=== PATIENT | male | born 1945 | race Caucasian/White ===

== ENCOUNTER 2017-12-17 11:01 | Emergency (ER) | payer MEDICARE ==
[2017-12-17 11:09] VITALS: RESP 20
[2017-12-17] MEDS ORDERED: Sodium Chloride 0.9% 1,000 ML IV ONE (11:33)
[2017-12-17 11:47] LABS: EOS % 0.2 % (0.0-4.0); HEMOGLOBIN 16.9 g/dL (12.0-18.0); MEAN CORPUSCULAR HEMOGLOBIN 32.5 pg (27.0-31.0); WHITE BLOOD COUNT 4.5 K/uL (4.8-10.8)
--- NOTE | 2017-12-17 11:54 | C.PDOC ---
History Of Present Illness Kd Johnson is a 72 year old male, with no significant past medical history , who presents to the emergency department complaining of abdominal pain associated with dribbling urine and headache onset since yesterday. Patient states he was seen in a hospital last week for the same symptoms, complaining of high blood pressure and abdominal pain. Patient reports multiple episodes of urine dribbling. He denies any fever, chills or other medical complaints. PMD: None provided. Time Seen by Provider: 12/17/17 11:22 Chief Complaint (Nursing): Abdominal Pain History Per: Patient History/Exam Limitations: no limitations Onset/Duration Of Symptoms: Days (x1) Current Symptoms Are (Timing): Still Present Radiation Of Pain To:: None Quality Of Discomfort: "Pain" Associated Symptoms: Urinary Symptoms (incontinence), Other (headache). denies : Fever, Chills Past Medical History Reviewed: Historical Data, Nursing Documentation, Vital Signs Vital Signs: Last Vital Signs Temp 97.5 F L 12/17/17 14:15 Pulse 74 12/17/17 14:15 Resp 20 12/17/17 14:15 BP 117/76 12/17/17 14:15 Pulse Ox 95 12/17/17 14:15 - Medical History PMH: No Chronic Diseases Surgical History: No Surg Hx Family History: States: Unknown Family Hx - Social History Hx Tobacco Use: No Hx Alcohol Use: No Hx Substance Use: No - Immunization History Hx Tetanus Toxoid Vaccination: No Hx Influenza Vaccination: No Hx Pneumococcal Vaccination: No Review Of Systems Constitutional: Negative for: Fever, Chills Cardiovascular: Negative for: Chest Pain Respiratory: Negative for: Cough Gastrointestinal: Positive for: Abdominal Pain Genitourinary: Positive for: Other (dribbling) Neurological: Positive for: Headache Physical Exam - Physical Exam Appears: Well, No Acute Distress Skin: Warm, Dry, No Rash Head: Atraumatic, Normacephalic Eye(s): bilateral: Normal Inspection, PERRL, EOMI Ear(s): Bilateral: Normal Nose: Normal Oral Mucosa: Moist Throat: Normal Neck: Normal ROM, Supple Cardiovascular: Rhythm Regular, No Murmur Respiratory: Normal Breath Sounds, No Wheezing Gastrointestinal/Abdominal: Tenderness (mild diffuse) Back: Normal Inspection, No CVA Tenderness, No Vertebral Tenderness Extremity: Normal ROM, No Pedal Edema, No Deformity, No Swelling Neurological/Psych: Oriented x3 (alert) ED Course And Treatment - Laboratory Results Result Diagrams: 12/17/17 11:41 12/17/17 11:41 Lab Interpretation: Normal ECG: Interpreted By Me ECG Rhythm: Sinus Rhythm ECG Interpretation: No Acute Changes Rate From EC O2 Sat by Pulse Oximetry: 96 (RA) Pulse Ox Interpretation: Normal - CT Scan/US No standard instances Other Rad Studies (CT/US): Read By Radiologist CT/US Interpretation: FINDINGS: LOWER THORAX: Bibasilar dependent atelectasis. Heart at the upper limits of normal in size. Coronary arterial and valvular calcifications. . LIVER: Unremarkable. No gross lesion or ductal dilatation. GALLBLADDER AND BILE DUCTS: Unremarkable. PANCREAS: Unremarkable. No gross lesion or ductal dilatation. SPLEEN: Unremarkable. ADRENALS: Unremarkable. No mass. KIDNEYS AND URETERS: Unremarkable. No hydronephrosis. No solid mass. VASCULATURE: Calcific atherosclerosis. No aortic aneurysm. BOWEL: Unremarkable. No obstruction. No gross mural thickening. APPENDIX: Unremarkable. Normal appendix. PERITONEUM: Small bilateral fat containing inguinal hernias. No free fluid. No free air. LYMPH NODES: Unremarkable. No enlarged lymph nodes. BLADDER: Unremarkable. REPRODUCTIVE: Unremarkable. BONES: Spinal degenerative changes. OTHER FINDINGS: None. IMPRESSION: Limited by motion artifact. No acute abdominal pelvic pathology. No urolithiasis or evidence of recently passed genitourinary calculus. FINDINGS: HEMORRHAGE: No intracranial hemorrhage. BRAIN: Diffuse atrophy with prominence of the ventricles and sulci noted. No mass effect or edema. Chronic appearing tiny left basal ganglia lacunar infarct. Please note that MRI with diffusion imaging is more sensitive in the detection of acute ischemic event. VENTRICLES: No hydrocephalus. CALVARIUM: Unremarkable. PARANASAL SINUSES: Unremarkable as visualized. No significant inflammatory changes. MASTOID AIR CELLS: Unremarkable as visualized. No inflammatory changes. OTHER FINDINGS: None. IMPRESSION: Nonspecific white matter changes. Tiny chronic appearing left basal ganglia lacunar infarct. Generalized atrophy. Progress Note: Patient seen for multiple complaints. Treated with IVF NSS and tylenol. On re-evaluation lungs clear in no distress Reassessment Condition: Improved Medical Decision Making Medical Decision Making: Initial Impression: Abdominal pain Initial Plan: --Abd & Pelvis w/o PO or IV contrast [CT] --Head w/o contrast [CT] --EKG --Comp Metabolic Panel --Lipase --CBC w/ differential --Sodium Chloride 1,000 ml IV 1,000 mls/hr --Urine culture --Urinalysis --reevaluation 12:[address] FINDINGS: HEMORRHAGE: No intracranial hemorrhage. BRAIN: Diffuse atrophy with prominence of the ventricles and sulci noted. No mass effect or edema. Chronic appearing tiny left basal ganglia lacunar infarct. Please note that MRI with diffusion imaging is more sensitive in the detection of acute ischemic event. VENTRICLES: No hydrocephalus. CALVARIUM: Unremarkable. PARANASAL SINUSES: Unremarkable as visualized. No significant inflammatory changes. MASTOID AIR CELLS: Unremarkable as visualized. No inflammatory changes. OTHER FINDINGS: None. IMPRESSION: Nonspecific white matter changes. Tiny chronic appearing left basal ganglia lacunar infarct. Generalized atrophy. 12:13 Abd/Pelvis CT FINDINGS: LOWER THORAX: Bibasilar dependent atelectasis. Heart at the upper limits of normal in size. Coronary arterial and valvular calcifications. . LIVER: Unremarkable. No gross lesion or ductal dilatation. GALLBLADDER AND BILE DUCTS: Unremarkable. PANCREAS: Unremarkable. No gross lesion or ductal dilatation. SPLEEN: Unremarkable. ADRENALS: Unremarkable. No mass. KIDNEYS AND URETERS: Unremarkable. No hydronephrosis. No solid mass. VASCULATURE: Calcific atherosclerosis. No aortic aneurysm. BOWEL: Unremarkable. No obstruction. No gross mural thickening. APPENDIX: Unremarkable. Normal appendix. PERITONEUM: Small bilateral fat containing inguinal hernias. No free fluid. No free air. LYMPH NODES: Unremarkable. No enlarged lymph nodes. BLADDER: Unremarkable. REPRODUCTIVE: Unremarkable. BONES: Spinal degenerative changes. OTHER FINDINGS: None. IMPRESSION: Limited by motion artifact. No acute abdominal pelvic pathology. No urolithiasis or evidence of recently passed genitourinary calculus. Additional findings as above. Disposition Counseled Patient/Family Regarding: Studies Performed, Diagnosis, Need For Followup, Rx Given - Disposition Referrals: [facility] [Outside] [facility] [Outside] Disposition: HOME/ ROUTINE Disposition Time: 14:00 Condition: STABLE Additional Instructions: Follow up with PMD or clinic for further evaluation Take tylenol as needed for pain Return to ED if any increase symptoms Instructions: Abdominal Pain (ED) Forms: [employer] ([place]) - POA Present On Arrival: None - Clinical Impression Clinical Impression: Abdominal pain, Viral illness - Scribe Statement The provider has reviewed the documentation as recorded by the Navarroibguera Rivas All medical record entries made by the Carlito were at my direction and personally dictated by me. I have reviewed the chart and agree that the record accurately reflects my personal performance of the history, physical exam, medical decision making, and the department course for this patient. I have also personally directed, reviewed, and agree with the discharge instructions and disposition.
[2017-12-17 12:01] LABS: BASO % 0.8 % (0.0-2.0); LYMPH # 1.6 K/uL (1.0-4.3); LYMPH % 34.3 % (20.0-40.0); MEAN CELL VOLUME 90.9 fL (80.0-94.0); MEAN CORPUSCULAR HGB CONC 35.7 g/dL (33.0-37.0); MEAN PLATELET VOLUME 7.7 fL (7.2-11.7); NEUT # 1.9 K/uL (1.8-7.0); NEUT % 42.7 % (50.0-75.0); NRBC % 0.4 % (0.0-2.0); PLATELET COUNT 185 K/uL (130-400); RED CELL DISTRIBUTION WIDTH 13.3 % (11.5-14.5)
[2017-12-17 12:04] LABS: CALCIUM 8.6 mg/dl (8.6-10.4); GFR AFRICAN-AMERICAN > 60; GFR NON-AFRICAN AMERICAN > 60; LIPASE 78 U/L (23-300)
[2017-12-17 12:21] LABS: ALBUMIN 4.1 g/dL (3.5-5.0); ALT/SGPT 37 U/L (21-72); AST/SGOT 76 U/L (17-59); BLOOD UREA NITROGEN 18 mg/dL (9-20)
[2017-12-17 12:22] LABS: BANDS 1 % (0-2); LYMPHOCYTE 28 % (20-40); MONOCYTE 18 % (0-10); NEUTROPHIL 53 % (50-75); PLATELET ESTIMATE NORMAL (NORMAL); TOTAL CELLS COUNTED 100
--- NOTE | 2017-12-17 12:30 | CT ---
PROCEDURE: CT HEAD WITHOUT CONTRAST. HISTORY: headache COMPARISON: Noncontrast head CT performed 07/13/13 TECHNIQUE: Axial computed tomography images were obtained through the head/brain without intravenous contrast. Radiation dose: Total exam DLP = 973.57 mGy-cm. This CT exam was performed using one or more of the following dose reduction techniques: Automated exposure control, adjustment of the mA and/or kV according to patient size, and/or use of iterative reconstruction technique. FINDINGS: HEMORRHAGE: No intracranial hemorrhage. BRAIN: Diffuse atrophy with prominence of the ventricles and sulci noted. No mass effect or edema. Chronic appearing tiny left basal ganglia lacunar infarct. Please note that MRI with diffusion imaging is more sensitive in the detection of acute ischemic event. VENTRICLES: No hydrocephalus. CALVARIUM: Unremarkable. PARANASAL SINUSES: Unremarkable as visualized. No significant inflammatory changes. MASTOID AIR CELLS: Unremarkable as visualized. No inflammatory changes. OTHER FINDINGS: None. IMPRESSION: Nonspecific white matter changes. Tiny chronic appearing left basal ganglia lacunar infarct. Generalized atrophy.
--- NOTE | 2017-12-17 12:32 | CT ---
PROCEDURE: CT Abdomen and Pelvis without intravenous contrast HISTORY: Pain COMPARISON: None. TECHNIQUE: Contiguous images were obtained from the domes of the diaphragms to the upper thighs without the administration of intravenous contrast. Oral contrast was not administered. Radiation dose: Total exam DLP = 1141.7 mGy-cm. This CT exam was performed using one or more of the following dose reduction techniques: Automated exposure control, adjustment of the mA and/or kV according to patient size, and/or use of iterative reconstruction technique. FINDINGS: LOWER THORAX: Bibasilar dependent atelectasis. Heart at the upper limits of normal in size. Coronary arterial and valvular calcifications. . LIVER: Unremarkable. No gross lesion or ductal dilatation. GALLBLADDER AND BILE DUCTS: Unremarkable. PANCREAS: Unremarkable. No gross lesion or ductal dilatation. SPLEEN: Unremarkable. ADRENALS: Unremarkable. No mass. KIDNEYS AND URETERS: Unremarkable. No hydronephrosis. No solid mass. VASCULATURE: Calcific atherosclerosis. No aortic aneurysm. BOWEL: Unremarkable. No obstruction. No gross mural thickening. APPENDIX: Unremarkable. Normal appendix. PERITONEUM: Small bilateral fat containing inguinal hernias. No free fluid. No free air. LYMPH NODES: Unremarkable. No enlarged lymph nodes. BLADDER: Unremarkable. REPRODUCTIVE: Unremarkable. BONES: Spinal degenerative changes. OTHER FINDINGS: None. IMPRESSION: Limited by motion artifact. No acute abdominal pelvic pathology. No urolithiasis or evidence of recently passed genitourinary calculus. Additional findings as above.
[2017-12-17] MEDS ORDERED: Sodium Chloride 0.9% 1,000 ML ONE (13:18)
[2017-12-17 13:29] LABS: URINE BILIRUBIN NEGATIVE (NEGATIVE); URINE BLOOD NEGATIVE (NEGATIVE); URINE CLARITY Clear (Clear); URINE COLOR YELLOW (YELLOW); URINE GLUCOSE (UA) NEGATIVE (Normal); URINE LEUKOCYTE ESTERASE NEGATIVE Leu/uL (Negative); URINE NITRATE NEGATIVE (NEGATIVE); URINE PROTEIN NEGATIVE (NEGATIVE); URINE UROBILINOGEN 0.2 mg/dL (0.2-1.0)
[2017-12-17 14:16] VITALS: BP 117/76; PULSE 74; TEMP 97.5
[2017-12-17 18:35] VITALS: O2SAT 96
--- NOTE | 2017-12-18 21:37 | CARD ---
APPROVED REPORT EKG Measurement Heart [id number] <Conclusion> Normal sinus rhythm Poor R wave progression V1 - V2 Abnormal ECG
== END 2017-12-17 14:27 | disposition home or self-care (01) ==
LOC: C.ER 11:01
DX: B34.9 Viral infection, unspecified (principal); R10.9 Unspecified abdominal pain
CPT/HCPCS: 70450; 74176; 80053; 81001; 83690; 85025; 87086; 93005; 99284; J7040

== ENCOUNTER 2018-01-22 18:17 | Emergency (ER) | payer MEDICARE ==
[2018-01-22 18:26] VITALS: BP 157/86; PULSE 79; RESP 18; TEMP 97.3; O2SAT 97
--- NOTE | 2018-01-22 18:54 | C.PDOC ---
History Of Present Illness 72 year old male presents to the ER after he slipped on ice this afternoon and hit his head on the floor, suffering a laceration to the forehead. Patient states he managed to stop himself from falling completely, however, his head still hit the floor. Denies LOC, headache, dizziness, nausea, or vomiting. - HPI Time Seen by Provider: 01/22/18 18:43 Chief Complaint (Nursing): Trauma History Per: Patient History/Exam Limitations: no limitations Onset/Duration Of Symptoms: Hrs Injury Occurred (Timing): Hours Ago: (Afternoon) Location Of Injury: Anterior: Head (Forehead) Recent travel outside of the [place]: No - Fall Fall:Prior To Injury: Slipped Past Medical History Reviewed: Historical Data, Nursing Documentation, Vital Signs Vital Signs: Last Vital Signs Temp 97.3 F L 01/22/18 18:24 Pulse 79 01/22/18 18:24 Resp 18 01/22/18 18:24 BP 157/86 H 01/22/18 18:24 Pulse Ox 97 01/22/18 18:54 Family History: States: Unknown Family Hx - Social History Hx Tobacco Use: No Hx Alcohol Use: No Hx Substance Use: No - Immunization History Hx Tetanus Toxoid Vaccination: No Hx Influenza Vaccination: No Hx Pneumococcal Vaccination: No Review Of Systems Gastrointestinal: Negative for: Nausea, Vomiting Musculoskeletal: Negative for: Neck Pain Skin: Positive for: Other (Laceration) Neurological: Negative for: Headache, Dizziness, Other (LOC) Physical Exam - Physical Exam Appears: Non-toxic, No Acute Distress Skin: Warm, Dry Head: Normacephalic, Laceration (1cm superficial vertical to forehead. No active bleeding.) Eye(s): bilateral: Normal Inspection, PERRL, EOMI Nose: Normal Oral Mucosa: Moist Lips: Normal Appearing, No Contusion, No Laceration Neck: Normal, No Midline Cervical Tenderness, No Paracervical Tenderness, Supple Neurological/Psych: Oriented x3, Normal Speech ED Course And Treatment O2 Sat by Pulse Oximetry: 97 (room air) Pulse Ox Interpretation: Normal Laceration - Laceration Repair Forehead Wound Length (In cm): 1 Description Of Wound: Linear (Vertical) Wound Cleansed With: Sterile Saline Wound Examination: Irrigated With Saline Wound Closure: Steri Strips, Skin Glue (Dermabond) Wound Complexity: Simple Disposition - Disposition Disposition: HOME/ ROUTINE Disposition Time: 18:53 Condition: STABLE Additional Instructions: Follow up with PMD within 1-2 days. Return to ED if feel worse. Instructions: Laceration Repair With Glue (DC) Forms: [employer] (Maori) - Clinical Impression Clinical Impression: Forehead laceration - PA / LAST SORTER / Resident Statement MD/DO has reviewed & agrees with the documentation as recorded. - Scribe Statement The provider has reviewed the documentation as recorded by the Scribguera Tavares All medical record entries made by the Navarroibguera were at my direction and personally dictated by me. I have reviewed the chart and agree that the record accurately reflects my personal performance of the history, physical exam, medical decision making, and the department course for this patient. I have also personally directed, reviewed, and agree with the discharge instructions and disposition.
== END 2018-01-22 19:02 | disposition home or self-care (01) ==
LOC: C.ER 18:17
DX: S01.81XA Laceration without foreign body of other part of head, initial encounter (principal); W00.0XXA Fall on same level due to ice and snow, initial encounter

== ENCOUNTER 2019-02-22 15:56 | Emergency (ER) | payer MEDICARE ==
[2019-02-22 16:07] VITALS: BP 180/92; PULSE 75; RESP 18; TEMP 98; O2SAT 92
[2019-02-22] MEDS ORDERED: Lidocaine 1% Inj (20ml) INFIL STA (16:20)
[2019-02-22] MEDS ORDERED: Lidocaine Hydrochloride 10 ML INJ ONE (16:26)
[2019-02-22] MEDS ORDERED: Bacitracin 500 Units/gm Oint Foilpak UD TOP ONE (16:54)
--- NOTE | 2019-02-22 16:57 | C.PDOC ---
History Of Present Illness 73 year old male presents to ED s/p injury to the right hand and right forearm after using a hand saw to cut wood today. Patient is up to date on tetanus vaccine. Patient denies sensory changes. Time Seen by Provider: 02/22/19 16:05 Chief Complaint (Nursing): Abnormal Skin Integrity History Per: Patient History/Exam Limitations: no limitations Onset/Duration Of Symptoms: Hrs Current Symptoms Are (Timing): Still Present Location Of Injury: Right: Forearm (laceration), Hand (laceration) Past Medical History Reviewed: Historical Data, Nursing Documentation, Vital Signs Vital Signs: Last Vital Signs Temp 98 F 02/22/19 16:05 Pulse 75 02/22/19 16:05 Resp 18 02/22/19 16:05 BP 180/92 H 02/22/19 16:05 Pulse Ox 92 L 02/22/19 16:05 - Medical History PMH: No Chronic Diseases Surgical History: No Surg Hx Family History: States: Unknown Family Hx - Social History Hx Tobacco Use: No Hx Alcohol Use: No Hx Substance Use: No - Immunization History Hx Tetanus Toxoid Vaccination: Yes (2017) Hx Influenza Vaccination: No Hx Pneumococcal Vaccination: No Review Of Systems Constitutional: Negative for: Fever, Chills, Weakness Musculoskeletal: Positive for: Arm Pain (left forearm laceration), Hand Pain (left hand laceration) Neurological: Negative for: Weakness, Numbness Physical Exam - Physical Exam Appears: Well, Non-toxic, No Acute Distress Skin: Normal Color, Warm, Dry Head: Atraumatic, Normacephalic Neck: Normal ROM, Supple Chest: Symmetrical, No Deformity Respiratory: No Accessory Muscle Use Extremity: Capillary Refill (<2 seconds), Other (7 cm laceration to the dorsum of the right hand in a diagonal orientation, proximal to that is a 3cm laceration on the forearm and a 2 cm laceration on the forearm) Pulses: Left Radial: Normal, Right Radial: Normal Neurological/Psych: Oriented x3, Normal Speech, Normal Cognition ED Course And Treatment O2 Sat by Pulse Oximetry: 92 (in RA) Progress Note: Laceration repair. Wound covered with bacitracin and gauze. Smaller wounds glued with dermabond. Patient prescribed pain medication and antibiotics. Patient told to come back for suture removal in 7-10 days. Laceration - Laceration Repair Right hand Wound Length (In cm): 7cm Description Of Wound: Linear Anesthesia: Lidocaine 1% (5 ml local infiltration) Wound Closure: Suture (10) Suture Technique And Material Used: Interrupted, Prolene (3:0) Wound Complexity: Simple Disposition Counseled Patient/Family Regarding: Diagnosis, Need For Followup, Rx Given - Disposition Referrals: [facility] [Outside] Disposition: HOME/ ROUTINE Disposition Time: 17:00 Condition: STABLE Additional Instructions: SUTURE REMOVAL IN 7-10 DAYS USE ANTIBIOTICS UNTIL FINISHED RETURN TO ER IF YOU HAVE ANY CONCERNING SYMPTOMS Prescriptions: Acetaminophen [Tylenol 325mg tab] 650 mg PO Q6 PRN #30 tab PRN Reason: pain/fever Cephalexin [Keflex] 500 mg PO BID #14 capsule Instructions: Laceration Repair With Glue (DC), Laceration Repair With Stitches (DC) Forms: [employer] (Chinese) Print Language: [place] - Clinical Impression Clinical Impression: Laceration of right hand - Scribe Statement The provider has reviewed the documentation as recorded by the Scribe (Kayce German) All medical record entries made by the Scribe were at my direction and personally dictated by me. I have reviewed the chart and agree that the record accurately reflects my personal performance of the history, physical exam, medical decision making, and the department course for this patient. I have also personally directed, reviewed, and agree with the discharge instructions and disposition.
[2019-02-22] MEDS ORDERED: Bacitracin 500 Units/gm Oint Foilpak UD ONE (17:00)
== END 2019-02-22 17:20 | disposition home or self-care (01) ==
LOC: C.ER 15:56
DX: S61.411A Laceration without foreign body of right hand, initial encounter (principal); W31.2XXA Contact with powered woodworking and forming machines, initial encounter